=== PATIENT | female | born 1965 | race Caucasian/White ===

== ENCOUNTER 2017-04-30 12:50 | Emergency (ER) | payer OTHER ==
[~2017-04-30] VITALS: Ht 167.6 cm; Wt 108.0 kg
[2017-04-30 12:51] VITALS: BP 112/80
[2017-04-30] MEDS ORDERED: DIAZEPAM 5 MG TABLET ONE (13:24)
[2017-04-30] MEDS ORDERED: KETOROLAC 30 MG/1 ML ONE (13:24)
[2017-04-30] MEDS ORDERED: KETOROLAC 30 MG/1 ML IM ONE (13:30)
[2017-04-30] MEDS ORDERED: DIAZEPAM 5 MG TABLET PO ONE (13:30)
== END 2017-04-30 14:38 | disposition home or self-care (01) ==
LOC: ED 14:25
DX: M54.41 Lumbago with sciatica, right side (principal); J45.909 Unspecified asthma, uncomplicated; Z90.49 Acquired absence of other specified parts of digestive tract; Z90.710 Acquired absence of both cervix and uterus; Z88.6 Allergy status to analgesic agent; Z88.5 Allergy status to narcotic agent
CPT/HCPCS: 72110; 96372; 99284; J1885

== ENCOUNTER 2021-05-15 07:29 | Day surgery (SDC) | payer BC, OTHER ==
[~2021-05-15] VITALS: Ht 170.2 cm; Wt 72.2 kg
[2021-05-15 08:00] VITALS: BP 105/61
[2021-05-15] MEDS ORDERED: FLUMAZENIL 0.1 MG/1 ML, 5ML ONE (10:20)
[2021-05-15] MEDS ORDERED: FENTANYL PF 100 MCG/2ML ONE (10:20)
[2021-05-15] MEDS ORDERED: MIDAZOLAM 1 MG/ML, 5ML ONE (10:20)
[2021-05-15] MEDS ORDERED: NALOXONE 1 MG/ML, 2ML ONE (10:20)
== END 2021-05-15 12:50 | disposition home or self-care (01) ==
LOC: OUT 07:29
PROVIDERS: ATTEND Orthopaedic Surgery
DX: M25.511 Pain in right shoulder (principal); M75.41 Impingement syndrome of right shoulder; F12.10 Cannabis abuse, uncomplicated; Z79.899 Other long term (current) drug therapy; Z88.5 Allergy status to narcotic agent; Z88.8 Allergy status to other drugs, medicaments and biological substances
CPT/HCPCS: 73221; 99156; 99157; J2250; J3010; J2310